=== PATIENT | male | born 1960 | race American Indian/Alaskan Native ===

== ENCOUNTER 2021-08-20 13:04 | Outpatient (CLI) | payer MEDICARE ==
--- NOTE | 2021-08-20 15:55 | XRay Report ---
LUMBOSACRAL SPINE 5 VIEWS INDICATION: BACK PAIN. COMPARISON: None. IMPRESSION: There is normal alignment on the lateral view. There is mild levocurvature near the thor acolumbar junction on the frontal view. 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 Mild to moderate neural foraminal narrowing is suspected at these levels. No acute osseous or soft tissue abnormality. BILATERAL HANDS 2 VIEWS INDICATION: Bilateral hand pain. COMPARISON: None. IMPRESSION: Bilateral hands are intact with no evidence for fracture, bone lesion or erosive joint p athology. Mild degenerative changes are noted throughout the fingers and metacarpophalangeal joints. The bilateral wrists are abnormal. Scapholunate ligament injury with capitate collapse and moderate degenerative changes are identified bilaterally. Signer Name: John Rojas Jr, MD Signed: 08/20/2021 3:50 PM Workstation Name: [id number]
== END 2021-08-20 13:05 | disposition home or self-care (01) ==
LOC: XRAY 13:04
DX: M19.042 Primary osteoarthritis, left hand (principal); M19.041 Primary osteoarthritis, right hand; M47.817 Spondylosis without myelopathy or radiculopathy, lumbosacral region
CPT/HCPCS: 72110

== ENCOUNTER 2021-10-26 17:56 | Emergency (ER) | payer MEDICARE ==
[2021-10-26 19:54] LABS: Color,Urine Yellow (Yellow); Mucus,Urine 2+ /HPF; WBC,Urine < 1.0 /HPF (0.0-6.0)
[2021-10-26 20:01] LABS: Basophils # (Auto) 0.1 K/mm3 (0.0-0.1); Basophils % (Auto) 1.5 % (0.0-1.8); Eosinophils # (Auto) 0.2 K/mm3 (0.0-0.4); Eosinophils % (Auto) 4.8 % (0.0-4.3); Hematocrit 43.3 % (35.5-45.6); Hemoglobin 13.6 gm/dl (11.8-15.2); Lymphocytes # (Auto) 1.7 K/mm3 (1.2-5.4); Lymphocytes % (Auto) 34.2 % (13.4-35.0); Mean Corpuscular HGB Conc 32 % (32-34); Mean Corpuscular Volume 70 fl (84-94); Monocytes # (Auto) 0.8 K/mm3 (0.0-0.8); Monocytes % (Auto) 15.2 % (0.0-7.3); Platelet Count 279 K/mm3 (140-440); Red Blood Count 6.14 M/mm3 (3.65-5.03); Red Cell Distribution Width 16.2 % (13.2-15.2)
[2021-10-26 20:14] LABS: Alanine Aminotransferase 17 units/L (7-56); BUN/Creatinine Ratio 14; Blood Urea Nitrogen 14 mg/dL (9-20); Calcium 9.1 mg/dL (8.4-10.2); Hemolysis Index 8
--- NOTE | 2021-10-26 23:38 | Cat Scan Report ---
CT abdomen pelvis wo con INDICATION / CLINICAL INFORMATION: right flank pain. TECHNIQUE: Axial CT imaging of abdomen and pelvis was obtained without contrast. Coronal and sagittal reformatte d imaging obtained and reviewed. All CT scans at this location are performed using CT dose reduction for ALARA by means of automated exposure control. COMPARISON: None available. FINDINGS: CT abdomen without contrast demonstrates grossly normal appearance of the liver, spleen, pancreas, ga llbladder, and adrenal glands. Large simple appearing cyst is arising from the upper pole the right k idney measuring 5.5 cm. There are a few smaller cysts scattered throughout both kidneys. No hydroneph rosis or intrarenal calculi noted. Abdominal aorta is unremarkable. CT pelvis without contrast demonstrates moderately enlarged prostate gland. Otherwise, no pelvic mass , free fluid, or focal inflammatory process noted. No evidence of appendicitis. GI tract is within no rmal limits. Visualized lung bases show pulmonary opacities in both bases slightly more prominent in the left lung base. Without prior exam it is difficult to know if this is acute or chronic. Certainly pneumonia is within the differential. No pleural effusion. No acute osseous abnormality. IMPRESSION: 1. Bilateral renal cysts the largest of which measures 5.5 cm in the right renal upper pole. No acute finding within the abdomen or pelvis. 2. Bibasilar pulmonary opacities possibly representing pneumonia. Unfortunately no prior imaging for comparison, to confirm whether this is acute or chronic process. Please correlate clinically.. Signer Name: Taryn Glez MD Signed: 10/26/2021 11:33 PM Workstation Name: [id number]
--- NOTE | 2021-10-26 23:58 | Emergency Department Report ---
ED Abdominal Pain HPI - General Chief Complaint: Abdominal Pain Stated Complaint: ABD PAIN Time Seen by Provider: 10/26/21 20:49 Source: patient Mode of arrival: Ambulatory Limitations: No Limitations - History of Present Illness Initial Comments: 61-year-old black male with a past medical history of hypertension and glaucoma presents to the emergency department for evaluation of few day history of abdominal pain, nausea, vomiting, and flank pain. He states that he started having pain on Thursday after eating warm coleslaw from [employer]. He states that for 2 days he has some nausea and vomiting that improved. He states that on Thursday he developed fever, chills, and right flank pain. He states that pain has been persistent but fever has improved. He denies chest pain, shortness of breath, dizziness. He states that pain is intermittent and is anywhere from 4- 10 on a 10 point scale. He states that pain is significantly worse when he lies down. MD Complaint: abdominal pain, flank pain -: days(s) (6) Location: R flank Radiation: none Migration to: no migration Severity: severe Severity scale (0 -10): 10 Quality: aching Consistency: intermittent Worsens With: other Associated Symptoms: nausea (Lying down), vomiting, fever, chills. denies: diarrhea, dysuria, hematemesis, hematochezia, melena, hematuria, anorexia, syncope - Related Data Previous Rx's Medication Instructions Recorded Last Taken Type Acetaminophen/Codeine [Tylenol 1 tab PO Q6H PRN #12 tab 10/27/21 Unknown Rx /Codeine # 3 tab] DOXYCYCLINE Hyclate [Vibramycin] 100 mg PO Q12HR 5 Days #10 capsule 10/27/21 Unknown Rx Allergies Allergy/AdvReac Type Severity Reaction Status Date / Time No Known Allergies Allergy Unverified 10/26/21 17:57 ED Review of Systems ROS: Stated complaint: ABD PAIN Other details as noted in HPI Comment: All other systems reviewed and negative Constitutional: chills, fever, malaise ENT: denies: congestion Respiratory: denies: shortness of breath Cardiovascular: denies: chest pain, palpitations Gastrointestinal: abdominal pain, nausea, vomiting, diarrhea, hematochezia. denies: hematemesis, melena Genitourinary: denies: urgency, dysuria Musculoskeletal: back pain Neurological: denies: headache, weakness ED Past Medical Hx - Past Medical History Hx Hypertension: Yes Additional medical history: EYE PROBLEMS - Surgical History Additional Surgical History: EYE - Medications Home Medications: Home Medications Medication Instructions Recorded Confirmed Last Taken Type Acetaminophen/Codeine [Tylenol 1 tab PO Q6H PRN #12 tab 10/27/21 Unknown Rx /Codeine # 3 tab] DOXYCYCLINE Hyclate [Vibramycin] 100 mg PO Q12HR 5 Days #10 capsule 10/27/21 Unknown Rx ED Physical Exam - General Limitations: No Limitations General appearance: alert, in no apparent distress - Head Head exam: Present: atraumatic, normocephalic - Eye Eye exam: Present: normal appearance. Absent: conjunctival injection, periorbital swelling - ENT ENT exam: Present: normal exam - Neck Neck exam: Present: normal inspection. Absent: tenderness - Respiratory Respiratory exam: Present: normal lung sounds bilaterally. Absent: respiratory distress, wheezes, rales, rhonchi, stridor, chest wall tenderness - Cardiovascular Cardiovascular Exam: Present: regular rate, normal heart sounds - GI/Abdominal GI/Abdominal exam: Present: soft, normal bowel sounds. Absent: distended, tenderness, guarding, rebound, rigid - Extremities Exam Extremities exam: Present: normal inspection, normal capillary refill - Back Exam Back exam: Present: normal inspection, CVA tenderness (R). Absent: CVA tenderness (L), vertebral tenderness - Neurological Exam Neurological exam: Present: alert, oriented X3 - Psychiatric Psychiatric exam: Present: normal affect, normal mood - Skin Skin exam: Present: warm, dry, intact, normal color ED Course Vital Signs 10/26/21 17:59 Temperature 98.3 F Pulse Rate 74 Respiratory 18 Rate Blood Pressure 142/93 O2 Sat by Pulse 91 Oximetry ED Medical Decision Making - Lab Data Result diagrams: 10/26/21 19:34 10/26/21 19:34 - Radiology Data Radiology results: report reviewed, image reviewed CT abdomen pelvis without contrast: FINDINGS: CT abdomen without contrast demonstrates grossly normal appearance of the liver, spleen, pancreas, gallbladder, and adrenal glands. Large simple appearing cyst is arising from the upper pole the right kidney measuring 5.5 cm. There are a few smaller cysts scattered throughout both kidneys. No hydronephrosis or intrarenal calculi noted. Abdominal aorta is unremarkable. CT pelvis without contrast demonstrates moderately enlarged prostate gland. Otherwise, no pelvic mass, free fluid, or focal inflammatory process noted. No evidence of appendicitis. GI tract is within normal limits. Visualized lung bases show pulmonary opacities in both bases slightly more prominent in the left lung base. Without prior exam it is difficult to know if this is acute or chronic. Certainly pneu monia is within the differential. No pleural effusion. No acute osseous abnormality. IMPRESSION: 1. Bilateral renal cysts the largest of which measures 5.5 cm in the right renal upper pole. No acute finding within the abdomen or pelvis. 2. Bibasilar pulmonary opacities possibly representing pneumonia. Unfortunately no prior imaging for comparison, to confirm whether this is acute or chronic process. Please correlate clinically.. - Medical Decision Making 61-year-old black male with a past medical history of hypertension and glaucoma presents to the emergency department for evaluation of few day history of abdominal pain, nausea, vomiting, and flank pain. He states that he started having pain on Thursday after eating warm coleslaw from [employer]. He states that for 2 days he has some nausea and vomiting that improved. He states that on Thursday he developed fever, chills, and right flank pain. He states that pain has been persistent but fever has improved. He denies chest pain, shortness of breath, dizziness. He states that pain is intermittent and is anywhere from 4- 10 on a 10 point scale. He states that pain is significantly worse when he lies down. CT positive for pneumonia. Patient will be discharged home with 5-day course of doxycycline along with Tylenol 3 to use as needed for the pain. He is advised to follow-up with his primary care provider in 2 to 3 days for recheck and return to the emergency department as needed. He verbalizes understanding of and agreement with plan of care. Critical care attestation.: If time is entered above; I have spent that time in minutes in the direct care of this critically ill patient, excluding procedure time. ED Disposition Clinical Impression: Renal cyst Pneumonia Qualifiers: Pneumonia type: due to unspecified organism Laterality: bilateral Lung location: lower lobe of lung Qualified Code(s): J18.9 - Pneumonia, unspecified organism Disposition: HOME / SELF CARE / HOMELESS Is pt being admited?: No Does the pt Need Aspirin: No Condition: Stable Instructions: Bacterial Pneumonia (ED), Community-Acquired Pneumonia, Adult, [id number] Additional Instructions: Take medications as prescribed. Follow-up with your primary care provider in 2 or 3 days for recheck. Return to the emergency department as needed Prescriptions: Acetaminophen/Codeine [Tylenol /Codeine # 3 tab] 1 tab PO Q6H PRN #12 tab PRN Reason: Pain, Moderate (4-6) DOXYCYCLINE Hyclate [Vibramycin] 100 mg PO Q12HR 5 Days #10 capsule Referrals: BERNY RIVERS MD [Primary Care Provider] - 3-5 Days Time of Disposition: 00:04
[2021-10-27] MEDS ORDERED: ACETAMINOPHEN W/CODEINE 300-30 MG TAB PO ONE (00:01)
[2021-10-27 00:29] VITALS: BP 147/91
== END 2021-10-27 00:29 | disposition home or self-care (01) ==
LOC: ED 17:56
DX: J18.9 Pneumonia, unspecified organism (principal); N28.1 Cyst of kidney, acquired; I10 Essential (primary) hypertension
CPT/HCPCS: 36415; 74176; 80053; 81001; 85025; 99284